=== PATIENT | male | born 1960 | race Caucasian/White ===

== ENCOUNTER 2025-06-06 07:29 | Outpatient (CLI) | payer MEDICARE, SELFPAY ==
--- NOTE | ~2025-06-06 | MR_ITS ---
EXAMINATION: MR abdomen wo/w con DATE: 06/06/2025 09:12 INDICATION: Renal mass. TECHNIQUE: Magnetic resonance imaging (MRI) of the abdomen was performed without and with 20 mL MultiHance intravenous contrast. COMPARISON: None. FINDINGS: There are cysts in the liver measuring up to 9 mm. The gallbladder, spleen, pancreas, and adrenal glands are normal. There is a small sliding hiatal hernia. There are multiple simple cysts in each kidney measuring up to 17.9 cm on the right. There is a 13 mm hemorrhagic cyst in right kidney. There are multiple hemorrhagic cysts in left kidney measuring up to 2.7 cm. There are no dilated loops of bowel. There is no ascites. There are no pathologically enlarged lymph nodes. IMPRESSION: 1. Benign cysts in the kidneys. 2. Small sliding hiatal hernia. Reviewed, dictated and finalized at location E. [employer]
== END 2025-06-06 07:30 | disposition home or self-care (01) ==
PROVIDERS: PCP Family Medicine; Visit Provider Nurse Practitioner Family
DX: N28.1 Cyst of kidney, acquired (principal); N20.0 Calculus of kidney; K44.9 Diaphragmatic hernia without obstruction or gangrene
CPT/HCPCS: 74183; A9577